=== PATIENT | male | born 1950 | race Caucasian/White ===

== ENCOUNTER 2018-02-08 13:48 | Emergency (ER) | payer OTHER ==
[2018-02-08 13:55] VITALS: TEMP 98.6
--- NOTE | 2018-02-08 13:57 | EDPHY ---
H & P Stated Complaint: L should injury--fell off horse, +helmet, no other inj Time Seen by Provider: 02/08/18 13:57 HPI/ROS: HPI: This is a 67-year-old male who presents with Chief Complaint: L should injury--fell off horse, +helmet, no other inj Location: Left shoulder Quality: Injury Duration: Prior to arrival Signs and Symptoms: No LOC, no nausea, no vomiting, no photophobia, no noise sensitivity, no neck stiffness, no neck pain, no weakness, no radiation, no aura , no paresthesias, no headache Timing: Acute Severity: 06/26 Context: Patient is right-hand dominant, was riding his horse while wearing a helmet, when the horse was stepped in a prairie dog hole causing him to lose his balance. Patient fell off of the horse landing directly on the superior and anterior portion of his left shoulder. He felt immediate, constant, severe , nonradiating pain. Pain was worsened with any range of motion. He denies any elbow/wrist/finger pain. He remembers the entire incident and denies any loss of consciousness. He has no nausea/vomiting/amnesia/abdominal pain. No history of shoulder dislocations in the past. Does not take any blood thinners. Ambulatory from the waiting room to the ER room without assistance. Modifying Factors: None Comment: ROS: see HPI Constitutional: No fever, no chills, no weight loss Eyes: No blurred vision Respiratory: No shortness of breath, no cough Cardiovascular: No chest pain, no palpitations Gastrointestinal: No nausea, no vomiting, no diarrhea, no hematemesis, no blood in stool Genitourinary: No dysuria, no blood in urine Extremities: No myalgias, no edema Neurologic: No weakness, no numbness Skin: No rashes, no petechiae Hematologic: No bruising, no bleeding MEDICAL/SURGICAL/SOCIAL HISTORY: Medical history: Hypothyroidism. Surgical history: Denies Social history: Employed. CONSTITUTIONAL: Adult male who appears younger than stated age, awake and alert , no obvious distress HEENT: Atraumatic and normocephalic, PERRL, EOMI. no globe entrapment, no raccoon eyes. no Shaikh signs.Tympanic membranes clear. No tympanic membrane rupture. Nares patent; no septal hematoma. Oropharynx clear, no exudate and moist pink mucosa. No malocclusion. no dental trauma. Airway patent. No lymphadenopathy. NECK: supple, no midline tenderness, flexion 45 degrees, extension 45 degrees, right and left lateral flexion 45 degrees. No meningismus. Cardiovascular: Normal S1/S2, tachycardia, regular rhythm, without murmur rub or gallop. PULMONARY/CHEST: Symmetrical and nontender. no crepitus. Clear to auscultation bilaterally. Good air movement. No accessory muscle usage. ABDOMEN: Soft, nondistended, nontender, no ecchymosis, no rebound, no guarding , no peritoneal signs, no masses or organomegaly. No CVAT. PELVIC: no pain with rocking; bilateral hips flexion 125 degrees, extension 30 degrees, with no pain internal rotation and no pain external rotation. BACK: No midline tenderness, no paraspinous spasm, deep tendon reflexes 2/2, no pain with straight leg raise EXTREMITIES: 2/2 radial pulses, left SHOULDER: Held in abduction next to his chest. No clavicular deformity appreciated. No tenting of skin. no deformities , no clubbing, no cyanosis or edema. Left WRIST: Extension to 70, flexion to 80, radial deviation to 20 degree, ulnar deviation to 30, no scaphoid tenderness, no tenderness over ulnar styloid, no tenderness over radial styloid. Left ELBOW: Full extension to 180, flexion to 150, no tenderness over medial epicondyle, no tenderness over lateral epicondyle, no effusion. NEUROLOGICAL: no focal neuro deficits. GCS 15. SKIN: Warm and dry, no erythema. no rash. Good capillary refill. Source: Patient Exam Limitations: No limitations - Medical/Surgical History Hx Asthma: No Hx Chronic Respiratory Disease: No Hx Diabetes: No Hx Cardiac Disease: No Hx Renal Disease: No Hx Cirrhosis: No Hx Alcoholism: No Hx HIV/AIDS: No Hx Splenectomy or Spleen Trauma: No Other PMH: denies - Social History Smoking Status: Never smoked Constitutional: Initial Vital Signs Temperature (C) 37.0 C 02/08/18 13:53 Heart Rate 101 H 02/08/18 13:53 Respiratory Rate 18 02/08/18 13:53 Blood Pressure 155/89 H 02/08/18 13:53 O2 Sat (%) 99 02/08/18 13:53 O2 Delivery Mode Room Air O2 (L/minute) 96 Allergies/Adverse Reactions: No Known Allergies Allergy (Unverified 02/08/18 13:52) Home Medications: Medication Instructions Recorded Diazepam [Valium 2 MG (*)] 2 mg PO Q8 PRN #10 tab 02/08/18 Diclofenac Sodium 02/08/18 Levothyroxine 02/08/18 oxyCODONE/APAP 5/325 [Percocet 1 - 2 tab PO Q4H PRN #20 tab 02/08/18 5/325 (*)] Medical Decision Making - Diagnostics Imaging Results: Imaging Impressions Shoulder X-Ray 02/08/18 13:56 Impression: 1. Acute comminuted left humeral head and surgical neck fracture. 2. No AC separation or dislocation. Procedures: Procedure: Splint placement. A left coaptation splint and sling was applied by the Emergency Room master automotive technician. After application of the splint I returned and re-examined the patient. The splint was adequately immobilizing the joint and distal to the splint the patient's circulation and sensation was intact. ED Course/Re-evaluation: Given IV Dilaudid 1 mg and left shoulder x-ray ordered No signs of neurovascular compromise/tenting of skin/compartment syndrome/ extremities and joints examined above and below area of concern and are neurovascularly intact. X-ray my read shows proximal humerus fracture; comminuted; neck 1450: ED decision to consult Orthopedic. Spoke with Dr. Robbie Love who agrees with coaptation splint, pain control, call office on Friday for follow- up appointment next week. 1500: Reassessed patient and showed x-rays at bedside. Still complaining of 7/ 10 pain with muscle spasms now. IV Dilaudid 1 mg and IV Valium 5 mg ordered. 1615: Reassessed patient who reports adequate control pain. Mother at bedside. All questions answered. This patient was seen under the supervision of my secondary supervising physician. I evaluated care for this patient independently. Discussed this patient with Dr. Bryant who did not see the patient. Differential Diagnosis: Shoulder injury differential includes but is not limited to clavicle fracture, humerus fracture, dislocation, brachial plexus injury, labral tear, rotator cuff injury, AC sprain. - Data Points Medications Given: Discontinued Medications Diazepam (Valium) 5 mg IVP EDNOW ONE Stop: 02/08/18 15:11 Last Admin: 02/08/18 15:18 Dose: 5 mg Hydromorphone HCl (Dilaudid) 1 mg IVP EDNOW ONE Stop: 02/08/18 14:08 Last Admin: 02/08/18 14:25 Dose: 1 mg Hydromorphone HCl (Dilaudid) 1 mg IVP EDNOW ONE Stop: 02/08/18 15:11 Last Admin: 02/08/18 15:18 Dose: 1 mg Departure - Departure Disposition: Home, Routine, Self-Care Clinical Impression: Fracture of surgical neck of left humerus Qualifiers: Encounter type: initial encounter Fracture type: closed Fracture morphology: 2- part Fracture alignment: nondisplaced Qualified Code(s): S42.225A - 2-part nondisplaced fracture of surgical neck of left humerus, initial encounter for closed fracture Condition: Good Instructions: Proximal Humerus Fracture (ED), Closed Reduction Internal Fixation of an Upper Extremity Fracture (DC) Additional Instructions: Keep the splint dry and in place until seen by Orthopedics for follow-up. Take Tylenol 650 mg every 4 hours and/or Ibuprofen 600 mg every 8 hours with food as needed for pain. Use Percocet every 6 hours as needed for severe/break through pain. Do not use Tylenol and Percocet concomitantly. Apply ice for 30 minutes at a time; 2-3 times per day for the next 1-[address] Love's office tomorrow morning for an appointment sometime next week. He will evaluate and recommend with you if conservative management versus surgery is indicated. Follow-Up: Please follow-up as noted above. Follow up sooner if your condition worsens or if you develop any new problems Call as soon as possible for an appointment. Be clear when you call for an appointment that this is an Emergency Department follow-up. Contact the Emergency Department if you are having trouble arranging follow up care. Our referrals are not based on your insurance network. When time allows, contact your insurance carrier to verify the referral physician is in your plan. If not, get a referral for an in-ip network architect. Please ask us if you have any questions. Return to the ER immediately if you experience new or worsening pain, discoloration, numbness, tingling, or any other symptoms that concern you. Referrals: Randall Orta MD [Primary Care Provider] - As per Instructions Robbie Love MD [Medical Doctor] - As per Instructions Prescriptions: Diazepam [Valium 2 MG (*)] 2 mg PO Q8 PRN #10 tab PRN Reason: Spasms oxyCODONE/APAP 5/325 [Percocet 5/325 (*)] 1 - 2 tab PO Q4H PRN #20 tab PRN Reason: Pain, Severe
[2018-02-08] MEDS ORDERED: HYDROmorphONE/DILAUDID 2 MG/ML INJ IVP ONE ×2 (14:07→15:10)
[2018-02-08] MEDS ORDERED: DIAZEPAM 5 MG/ML 1 ML SYR IVP ONE (15:10)
[2018-02-08 15:25] VITALS: RESP 16
[2018-02-08 16:27] VITALS: BP 148/99; PULSE 82; O2SAT 96
== END 2018-02-08 16:40 | disposition home or self-care (01) ==
DX: S42.225A 2-part nondisplaced fracture of surgical neck of left humerus, initial encounter for closed fracture (principal); V80.010A Animal-rider injured by fall from or being thrown from horse in noncollision accident, initial encounter; Y99.8 Other external cause status; Y93.52 Activity, horseback riding
CPT/HCPCS: 96374; A4565; J1170; J3360

== ENCOUNTER 2018-02-23 12:58 | Observation (INO) | payer OTHER ==
--- NOTE | 2018-02-22 08:19 | GHP ---
[f rep st] PREOP HISTORY AND PHYSICAL DATE OF ADMISSION: 02/23/2018 ADMISSION DIAGNOSIS: Comminuted proximal humerus fracture, left. PLANNED PROCEDURE: Open reduction, internal fixation, left proximal humerus fracture. HPI: The patient is a 67-year-old male, who fell off his horse on 02/08/2018, presented to the [facility] Emergency Department. X-rays were obtained which showed a comminuted proximal humerus fracture, 3-part, displaced in a posterior splint and sling, and presented to the office for followup. Decision was made to proceed with an open reduction, internal fixation of his shoulder. PRIOR MEDICAL HISTORY: Thyroid problems. SURGICAL HISTORY: None. SOCIAL HISTORY: He is . Does not smoke. Occasional alcohol use. 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 REVIEW OF SYSTEMS: No shortness of breath. No chest pain. Otherwise, review of systems is unremark able. PHYSICAL EXAM: VITAL SIGNS: 6 feet tall, weighs 175 pounds. Blood pressure is 140/80. Heart rate is 100, respiratory rate is 14 on room air. GENERAL: Alert and oriented x3. HEENT: Normocephalic, atraumatic. Extraocular muscles are intact. NECK: Supple. There is no lymphadenopathy. No JVD. CHEST: Clear to auscultation. CARDIOVASCULAR: Regular rate and rhythm. ABDOMEN: Soft, nontender , nondistended. EXTREMITIES: Focusing on the left upper extremity, he has quite a bit of ecchymosis in his chest wall and proximal humerus. There is no obvious deformity. He has 2+ radial pulses. M oving his fingers well. Sensation in the radial and median and ulnar nerve distribution all intact. X-rays are reviewed. They do show a 3-part proximal humerus fracture. The greater tuberosity fragme nt is displaced superiorly and posteriorly. ASSESSMENT: Three-part proximal humerus fracture, left. PLAN: The glenohumeral joint is in good shape on the x-ray, so I recommend proceeding with an open r eduction, internal fixation of the fracture, repositioning the greater tuberosity piece. We talked a bout risks and benefits. He may need to have hardware removed in the future. There is a possibility for humeral head avascular necrosis following a complex injury like this, necessitating further surg ical intervention. He understands these risks. Plan on surgery Friday at the hospital. /[id number]/MODL
[2018-02-23] MEDS ORDERED: ceFAZolin 2 GM/SWFI 2 GM/20 ML SYR IVP ONE (13:13)
[2018-02-23] MEDS ORDERED: LIDOCAINE 1% 2 ML INJ ID PRN (13:14)
[2018-02-23] MEDS ORDERED: LR 1,000 ML IV ONE (13:14)
[2018-02-23] MEDS ORDERED: POLYMYXIN B SULFATE 500,000 UNIT/10 ML SYR IRR ONE ×2 (14:05→15:53)
[2018-02-23] MEDS ORDERED: BUPIVACAINE/EPI 0.5% 30 ML SDV ONE (14:05)
[2018-02-23] MEDS ORDERED: BACITRACIN 50,000 UNITS/10 ML SYR IRR ONE ×2 (14:06→15:53)
--- NOTE | 2018-02-23 15:12 | PDANEPAE ---
ANE History of Present Illness 67 yo M s/p proximal humerus fx, here for ORIF ANE Past Medical History - Cardiovascular History Hx Hypertension: No Hx Arrhythmias: No Hx Chest Pain: No Hx Coronary Artery / Peripheral Vascular Disease: No Hx CHF / Valvular Disease: No Hx Palpitations: No - Pulmonary History Hx COPD: No Hx Asthma/Reactive Airway Disease: No Hx Recent Upper Respiratory Infection: No Hx Oxygen in Use at Home: No Hx Sleep Apnea: No Sleep Apnea Screening Result - Last Documented: Negative - Neurologic History Hx Cerebrovascular Accident: No Hx Seizures: No Hx Dementia: No - Endocrine History Hx Diabetes: Yes Endocrine History Comment: HYPOTHYROID - Renal History Hx Renal Disorders: Yes Renal History Comment: BPH - Liver History Hx Hepatic Disorders: No - Neurological & Psychiatric Hx Hx Neurological and Psychiatric Disorders: No - Cancer History Hx Cancer: No - Congenital Disorder History Hx Congenital Disorders: No - GI History Hx Gastrointestinal Disorders: No - Other Health History Other Health History: FELL OFF HORSE ONTO LT SHLDR 02/08/2018 SUSTATINING FX TO LT HUMERUS. CDD SCAPULA AREA - Chronic Pain History Chronic Pain: No - Surgical History Prior Surgeries: REMVL CYST FROM LEFT CALF. CERVICAL STEROID INJECTIONS. RT TRIGGER FINGER RELEASE. RT GREAT TOE ANE Review of Systems Review of Systems: - Exercise capacity METS (RN): 4 METS ANE Patient History - Allergies Allergies/Adverse Reactions: No Known Allergies Allergy (Unverified 02/08/18 13:52) - Home Medications Home Medications: Diclofenac Sodium PO PRN 02/08/18 [Last Taken 02/23/18] Levothyroxine DAILY06 02/08/18 [Last Taken 02/23/18] Avodart 0.5 MG (*) DAILY06 02/20/18 [Last Taken 02/23/18] Citalopram DAILY06 02/20/18 [Last Taken 02/23/18] Simvastatin 20 mg 02/23/18 [Last Taken 02/22/18] Tizanidine HCl 02/23/18 [Last Taken 02/20/18] traMADol 02/23/18 [Last Taken 02/22/18] - NPO status NPO Status: no food or drink >8 hours NPO Since - Liquids (Date): 02/23/18 NPO Since - Liquids (Time): 10:30 NPO Since - Solids (Date): 04/08/18 NPO Since - Solids (Time): 20:30 - Anes Hx Anes Hx: no prior problems - Smoking Hx Smoking Status: Never smoked - Alcohol Use Alcohol Use: Occasionally - Family Anes Hx Family Anes Hx: none ANE Labs/Vital Signs - Vital Signs Blood Pressure: 141/94 Heart Rate: 94 Respiratory Rate: 14 O2 Sat (%): 99 Height: 182.88 cm Weight: 79.379 kg ANE Physical Exam - Airway Neck exam: FROM Mallampati Score: Class 2 Mouth exam: normal dental/mouth exam - Pulmonary Pulmonary: no respiratory distress, clear to auscultation - Cardiovascular Cardiovascular: regular rate and rhythym, no murmur, rub, or gallop - ASA Status ASA Status: II ANE Anesthesia Plan Anesthesia Plan: GA w LMA Regional Anesthesia: single shot NB, interscalene BP NB
[2018-02-23] MEDS ORDERED: MIDAZOLAM 2 MG/2 ML VIAL IVP ONE (15:14)
[2018-02-23] MEDS ORDERED: LIDOCAINE 2% 100 MG/5 ML SYR ONE (15:41)
[2018-02-23] MEDS ORDERED: PROPOFOL 200 MG/20 ML VIAL ONE (15:41)
[2018-02-23] MEDS ORDERED: fentaNYL 100 MCG/2 ML INJ ONE (15:41)
[2018-02-23] MEDS ORDERED: BUPIVACAINE 0.5% 30 ML SDV ONE ×2 (15:51→15:53)
[2018-02-23] MEDS ORDERED: clonIDINE 1 MG/10 ML VIAL EP ONE (15:51)
--- NOTE | 2018-02-23 15:52 | PDHPUP ---
History & Physical Update H&P update statement: This history and physical update is based on an assessment of the patient which was completed after admission or registration (within 24 hours), but prior to the surgery/procedure. H&P update: H&P reviewed & patient examined, no change in patient's condition since H&P completed
[2018-02-23] MEDS ORDERED: PHENYLEPHRINE HCL 100 MCG/ML SYR ONE ×2 (17:02)
[2018-02-23] MEDS ORDERED: DEXAMETHASONE 4 MG/ML VIAL ONE (17:24)
[2018-02-23] MEDS ORDERED: ONDANSETRON 4 MG/2 ML VIAL ONE (17:24)
[2018-02-23] MEDS ORDERED: PHENYLEPHRINE 10 MG/ML SDV ONE (17:42)
--- NOTE | 2018-02-23 18:18 | POSTOPPROG ---
Post Op Note Date of Operation: 02/23/18 Surgeon: Robbie Love [place] [employer] Professor: CORRIE robles Anesthesia: GET(General Endotracheal) Pre-op Diagnosis: proximal humerus fx left Post-op Diagnosis: same Procedure: ORIF prox humerus, biceps tenodesis Findings: 4 part prox humeral fx Inf/Abcess present in the surg proc area at time of surgery?: No EBL: 50-100 Complications: none
[2018-02-23] MEDS ORDERED: ACETAMINOPHEN 500 MG TAB PO PRN (18:45)
[2018-02-23] MEDS ORDERED: PROMETHAZINE HCL 25 MG/ML INJ IVP PRN (18:45)
[2018-02-23] MEDS ORDERED: fentaNYL 100 MCG/2 ML INJ IVP PRN (18:45)
[2018-02-23] MEDS ORDERED: HYDROCODONE/APAP 5/325 TAB PO PRN (18:45)
[2018-02-23] MEDS ORDERED: NALOXONE HCL 0.4 MG/ML INJ IVP PRN (18:45)
[2018-02-23] MEDS ORDERED: ONDANSETRON 4 MG/2 ML VIAL IVP PRN ×2 (18:45→21:45)
[2018-02-23] MEDS ORDERED: oxyCODONE IR 5 MG TAB PO PRN (18:45)
--- NOTE | 2018-02-23 18:48 | POSTANESTH ---
Post Anesthetic Evaluation Cardiovascular Status: Normal, Stable, Similar to Pre-Op Cond Respiratory Status: Normal, Stable, Similar to Pre-op Cond. Level of Consciousness/Mental Status: Can Participate in Eval, Alert and Oriented Pain Control: Adequate, Prn Tx Ordered Nausea/Vomiting Control: Adequate, Prn Tx Ordered Complications Possibly Related to Anesthesia: None Noted
--- NOTE | 2018-02-23 19:58 | CPEKG ---
Heart Rate: 153 RR Interval: 392 QRSD Interval: 138 QT Interval: 352 QTC Interval: 562 P [place]: 0 QRS [place]: 115 T Wave [place]: -5 EKG Severity - ABNORMAL ECG - EKG Impression: SINUS TACHYCARDIA EKG Impression: RIGHT BUNDLE BRANCH BLOCK Electronically Signed By: Jami Amaya 24-Feb-2018 07:00:55
[2018-02-23] MEDS ORDERED: ADENOSINE 6 MG/2 ML VIAL IVP ONE (20:00)
[2018-02-23] MEDS ORDERED: METOPROLOL TARTRATE 5 MG/5 ML INJ ONE ×2 (20:11→20:21)
[2018-02-23] MEDS ORDERED: METOPROLOL TARTRATE 5 MG/5 ML INJ IVP ONE ×2 (20:45→21:20)
--- NOTE | 2018-02-23 20:51 | POSTANESTH ---
Post Anesthetic Evaluation Cardiovascular Status: Other, See Comment Respiratory Status: Normal, Stable, Similar to Pre-op Cond. Level of Consciousness/Mental Status: Can Participate in Eval Pain Control: Adequate, Prn Tx Ordered Nausea/Vomiting Control: Adequate, Prn Tx Ordered Complications Possibly Related to Anesthesia: None Noted Notes: Called to PACU to reevaluate pt for stable tachyarythmia. 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 Attempted vagal maneuvers which were ineffective. Adenosine 6 mg converted him to sinus tach 120's. Metoprolol 5 mg IV brought his rate down to the 80's NSR. Pt stable and comfortable throughout. Plan to admit to tele for observation overnight, consider cards consult in the am. Discussed with hospitalist and ortho.
[2018-02-23] MEDS ORDERED: traMADol 50 MG TAB PO PRN (21:45)
[2018-02-23] MEDS ORDERED: ACETAMINOPHEN 325 MG TAB PO PRN (21:45)
--- NOTE | 2018-02-23 22:34 | GHP ---
[f rep st] HISTORY AND PHYSICAL DATE OF ADMISSION: 02/23/2018 CHIEF COMPLAINT: Supraventricular tachycardia. HISTORY: The patient is a 67-year-old male who fell off his horse on February 08 and sustained a left proximal humerus fracture. Underwent an ORIF of the shoulder today by Dr. Love. When he was re covering in PACU, he was noted to be in tachycardia with heart rates between 150-180 and a STAT team was called. He was diagnosed with SVT. Vagal maneuvers were attempted with no results. He was subs equently given 6 mg of IV adenosine and converted back to a sinus tachycardia. He was then given 5 m g of IV metoprolol and he is now in normal sinus rhythm with a heart rate in the 80s. I am now being asked to admit him to observation and telemetry overnight. The patient states he had absolutely no symptoms during the event. Staff was getting excited regardi ng his heart rate on the monitor, but he felt mostly normal without any chest pain or shortness of br eath. He never gets any palpitations. This shoulder fracture has been very stressful for him with p oorly-controlled pain over the last 3 weeks. He says he maybe felt a little wired in the postoperati ve period, but otherwise asymptomatic. He has no known cardiac problems and otherwise has no chronic cardiac symptoms. PAST MEDICAL HISTORY: 1. Hypothyroidism. 2. BPH. 3. Hyperlipidemia. 4. Depression. PAST SURGICAL HISTORY: Cervical steroid injection. MEDICATIONS: Please see computer record for a detailed list. ALLERGIES: No known drug allergies. SOCIAL HISTORY: No smoking. Occasional alcohol. He lives with his . 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 REVIEW OF SYSTEMS: Complete review of systems obtained. Review of systems negative regarding consti tutional, HEENT, GI, pulmonary, cardiovascular, , hematology, skin, musculoskeletal, endocrine, psy ch, except for positives and negatives as in HPI. FAMILY HISTORY: His sister also suffers from tachycardia. Father at age 99 with no cardiac pro blems. His mother did require a valve replacement surgery. PHYSICAL EXAMINATION: GENERAL: Well-developed, well-nourished male, in no acute distress. VITAL SI GNS: Temperature 36.7, pulse 92, blood pressure 108/79, saturating 97%. HEENT: Eye examination: N ormal conjunctivae. Pupils are equal and reactive to light. ENT: Normal ears, nose. Hearing intac t. Normal teeth. Oropharynx moist. NECK: Trachea midline. No thyromegaly. CHEST: Normal effort . LUNGS: Clear to auscultation bilaterally. CARDIOVASCULAR: Regular rate and rhythm. No murmur. No lower extremity edema. ABDOMEN: Soft, nontender. No hepatosplenomegaly. SKIN: Warm, dry, int act. No rash. MUSCULOSKELETAL: No cyanosis or clubbing. Strength 5/5 upper and lower extremities. NEUROLOGIC: Cranial nerves intact. Normal sensation to light touch. PSYCHIATRIC: Awake, alert, oriented x3. Normal affect. Normal judgment. Normal memory. DATA: Glucose is 103. EKG shows SVT with a heart rate 153. This case was discussed with Dr. Yandel Chapin, who was the anesthesiology attending to the STAT team ev ent. He described events to me as they were placed under Past Medical History. ASSESSMENT AND PLAN: 1. Supraventricular tachycardia, status post IV adenosine, now back to a sinus rhythm. Will continu e a low-dose beta marques. Will watch him on telemetry overnight and check an echocardiogram and EKG in the morning. The patient and his would like a Cardiology consultation, but would we would l keisha to decide tomorrow with the [facility] hospitalist, whether not that should be done as an inpatient , or if he would be comfortable going home and pursuing that as an outpatient. 2. Left proximal humerus fracture status post open reduction, internal fixation. This was intended to be an outpatient procedure. So, therefore, he can discharge home when he is stable from a cardiac standpoint. 3. Depression. This has been very severe in the last couple of weeks due to his severe pain from th e shoulder. Therefore, the is also concerned regarding initiation of a beta-marques. Will disc uss tomorrow whether or not that needs to be continued. Hopefully, depression will improve now that the surgery is completed. 4. Hypothyroidism. Will check TSH in the morning. CODE STATUS: Full. ADMISSION STATUS: Will admit to observation. Reevaluate tomorrow during ongoing hospitalization. DVT PROPHYLAXIS: He is low risk and just had surgery. Will hold off on pharmacologic prophylaxis at this time. /[id number]/MODL
[2018-02-24] MEDS: oxyCODONE IR 5 MG TAB PO PRN ×2 (03:33→10:38)
[2018-02-24 04:09] LABS: PLATELET COUNT 352 10^3/uL (150-400)
--- NOTE | 2018-02-24 06:35 | GOP ---
[f rep st] OPERATIVE REPORT DATE OF OPERATION: SURGEON: Robbie Love MD ANESTHESIA: Dr. Yandel Chapin, general with interscalene block. PREOPERATIVE DIAGNOSIS: Displaced proximal humerus fracture, left. POSTOPERATIVE DIAGNOSIS: Displaced proximal humerus fracture, left. PROCEDURE PERFORMED: 1. Open reduction, internal fixation, left humerus. 2. Biceps tenodesis. FINDINGS: INDICATIONS: The patient is a 67-year-old male, who fell off a horse approximately 10 days ago and s ustained a proximal humerus fracture. He was evaluated in our office and decision made to proceed wi an open reduction, internal fixation of his fracture. DESCRIPTION OF PROCEDURE: After appropriate informed consent was obtained, patient taken to the oper ating room, placed supine on the operating table. Time-out was performed. Patient was identified an d correct site was identified. An interscalene block had been placed in the preoperative area. Dr. Chapin administered general endotracheal tube anesthesia. IMPLANTS USED: Synthes proximal humeral locking plate. COMPLICATIONS: None. DRAINS: None. POSITION: The patient was then positioned in the beach chair position with the left upper extremity prepped and draped in usual sterile fashion. I made a standard deltopectoral incision, retracted the cephalic vein toward the medial side of the wound and opened up the deltopectoral interval. I incis ed the clavipectoral fascia. I incised the subscapularis and tagged it for later repair to examine t he joint. There were no loose bodies within the joint and the articular cartilage was well maintaine d. I then turned my attention to the proximal humeral fracture. It was a 4 part fracture. Part of the greater tuberosity had been displaced superiorly with the rotator cuff attached to that fragment and there was a fragment displaced posteriorly superiorly. I was able to reduce the greater tuberosi ty fracture back to its original position with the cuff intact. Using heavy #2 FiberWire I was able to temporarily suture it back in place as was able to do with the posterior fragment and then placed the proximal humerus superior locking plate in place, confirmed its position with a fluoroscopic imag e and I was able to sew those fragments back onto the plate later once I had attached the plate to e bone. I started with a shaft screw with good bony purchase. Reduced the fracture nicely. Brought the head back out of varus alignment. I then placed a series of locking screws both proximally and distally in the plate confirming their position with AP and lateral fluoroscopic images. The wound w as irrigated. The biceps tendon had been badly injured. I tenodesed it and removed the remaining fr agments inside the joint. Closed the subscapularis with #2 FiberWire. Closed the clavipectoral fasc ia with 0 Vicryl, superficial layers closed with 2-0 Vicryl, skin was closed with a subcuticular [place] cryl stitch. I instilled 20 mL of 0.5% Marcaine around the incision. Sterile dressing and a sling w ere applied. The patient was awakened from anesthesia, taken to the recovery room in satisfactory co ndition. There were no immediate intraoperative complications. Anjel Arias's assistance was requ ired throughout the entire case. /[id number]/MODL
[2018-02-24] MEDS ORDERED: METOPROLOL SUCCINATE XR 25 MG TAB PO SCH (09:00)
--- NOTE | 2018-02-24 09:12 | CPEKG ---
Heart Rate: 86 RR Interval: 698 P-R Interval: 172 QRSD Interval: 144 QT Interval: 396 QTC Interval: 474 P [place]: 72 QRS [place]: 103 T Wave Preston: 35 EKG Severity - ABNORMAL ECG - EKG Impression: SINUS RHYTHM EKG Impression: RBBB AND LPFB EKG Impression: ST ELEVATION, PROBABLE LATERAL INJURY Electronically Signed By: Jami Amaya 24-Feb-2018 11:06:16
[2018-02-24] MEDS ORDERED: CYCLOBENZAPRINE 10 MG TAB PO PRN (09:25)
[2018-02-24] MEDS ORDERED: traMADol 50 MG TAB PO PRN (09:25)
[2018-02-24] MEDS ORDERED: OXYCODONE/APAP 5/325 TAB PO PRN (09:25)
[2018-02-24] MEDS ORDERED: DICLOFENAC SODIUM 75 MG TAB PO PRN (09:25)
[2018-02-24] MEDS ORDERED: LEVOTHYROXINE 137 MCG TAB PO SCH (09:30)
[2018-02-24] MEDS ORDERED: NON-FORMULARY NEW DRUG (Escitalopram Oxalate [Lexapro] 20 MG) PO SCH (09:30)
--- NOTE | 2018-02-24 09:44 | CPEKG ---
Heart Rate: 112 RR Interval: 536 P-R Interval: 168 QRSD Interval: 140 QT Interval: 364 QTC Interval: 497 P [place]: 63 QRS [place]: 146 T Wave [place]: -2 EKG Severity - ABNORMAL ECG - EKG Impression: SINUS TACHYCARDIA EKG Impression: RBBB AND LPFB Electronically Signed By: Jami Amaya 24-Feb-2018 11:06:07
[2018-02-24] MEDS ORDERED: DUTASTERIDE 0.5 MG CAP PO SCH (09:45)
[2018-02-24] MEDS ORDERED: ESCITALOPRAM OXALATE 10 MG TAB PO SCH (09:45)
--- NOTE | 2018-02-24 10:23 | ECHO ---
[email or web address] [address] Main: [phone] Fax: Transthoracic Echocardiogram Name: NANCY SCHUSTER MR#: [id number] Study Date: 02/24/2018 Study Time: 07:43 AM Date of : 1950 Age: 67 year(s) Height: 182.9 cm (72 in.) Weight: 79.38 kg (175 lb.) BSA: 2.01 m2 Gender: Male Examination: Echo Indication: SVT post op left shoulder Image Quality: Contrast: Requested by: Kyra Sagastume BP: 109 mmHg/72 mmHg Heart Rate: Rhythm: Indication: SVT post op left shoulder Procedure Staff Funds Transfer Clerk: Ciera Infante RDCS Reading Physician: Milan Gandara MD Requesting Provider: Conclusions: No pericardial effusion. Limited study. Preserved LV systolic function. Doppler suggests no significant valvular abnormalities. Measurements: Chambers Valvular Assessment AV/MV Valvular Assessment TV/PV Normal Normal Normal Name Value Range Name Value Range Name Value Range Ao Annette (MM): 3.9 cm (2.2 cm-3.7 AV meanP mmHg ( - ) cm) MV E Vmax: 0.56 m/s ( - ) EF Range: 70-75 % MV A Vmax: 0.78 m/s ( - ) MV E/A: 0.72 ( - ) Continued Measurements: Valvular Assessment AV/MV Name Value MV E' Septal: 0.07 m/s MV E/E' Septal: 8.30 Findings: Left Ventricle: Normal size left ventricle. Global hypercontractility of the left ventricle. The ejection fraction is estimated to be 70-75 %. Right Ventricle: Normal size right ventricle. Left Atrium: The left atrium is normal in size. Mitral Valve: Patient: NANCY SCHUSTER Study Date: 02/24/2018 Page 1 of 2 07:43 AM The mitral valve is normal in appearance. Aortic Valve: Aortic valve opens well.. Tricuspid Valve: The tricuspid valve appears normal. Pulmonic Valve: Pulmonary valve not well visualized. Pericardium: No pericardial effusion. Exam Comments: Technically difficult study - post op left shoulder. (No Signature Object) Patient: NANCY SCHUSTER Study Date: 02/24/2018 Page 2 of 2 07:43 AM [id number]
[2018-02-24 12:01] VITALS: BP 107/70
--- NOTE | 2018-02-24 12:41 | GDS ---
[f rep st] DISCHARGE SUMMARY DIAGNOSES: 1. Supraventricular tachycardia, cardioverted with adenosine. 2. Humerus fracture status post surgery. PROCEDURE PERFORMED: Echocardiogram, normal, surgeries. Please see Dr. Love's note. HOSPITAL COURSE: The patient is a 67-year-old who fell off his horse sustaining a humeral fracture. He underwent surgery yesterday and postop in the PACU developed SVT with a heart rate of 160 to 180, which was asymptomatic. They tried various vagal maneuvers, which did not resolve, so he ended up g etting adenosine and converted back to sinus rhythm. He was monitored overnight, had no further arrh ythmias and is ready for discharge today. He did meet with Cardiology for a formal consult, who rica mmended that he follow up with him in 6 weeks. He also recommend he start an aspirin due to his risk factors. They did not recommend daily metoprolol use at this time since that was a 1 time rhythm an d he can certainly follow up and discuss that depending on if he has any further episodes. CONDITION ON DISCHARGE: Good. He has been in sinus rhythm throughout his stay. His vital signs are stable. DISCHARGE MEDICATIONS: Please see discharge medication form. FOLLOWUP: Will be with [facility] in 6 weeks. Follow up with Dr. Love as scheduled. /[id number]/MODL
--- NOTE | 2018-02-24 15:44 | ASDISCHSUM ---
Discharge Information Plan Status:Home with No Needs Medically Cleared to Leave:02/24/2018 Discharge Date:02/24/2018 01:08 PM CM D/C Disposition:Home, Routine, Self-Care ADT D/C Disposition:Home, Routine, Self-Care Projected Discharge Date:02/24/2018 01:08 PM Transportation at D/C: Discharge Delay Reason: Follow-Up Date:02/24/2018 01:08 PM Discharge Slot: Final Diagnosis: Placement Information Patient Contact Information Contact Name:MIKKI Relationship: Address:[address] City:[place] [facility] Phone: [facility]/Zip Code:[place] [address] Email: Financial Information Financial Class:HMO and PPO Plans Primary Plan Desc:[employer] PPO [employer] Primary Plan Number:[id number] Secondary Plan Desc: Secondary Plan Number: Assessment Information LACE LACE Length of stay for Answers: Less than 1 day current admission Acuity / Level of Answers: No Care: Did the patient have an inpatient admission? Comorbidities - select Answers: Other Notes: BPH, hypothroidism, hyp erl all that apply ipidemia # of Emergency department Answers: 1-2 visits in the last 6 months Social determinants Answers: Mental health diagnosis (anxiety, depression, pers onality disorders, etc.) Score: 5 Date Signed: 02/24/2018 03:43 PM Electronically Signed By:Devora Alexander RN Case Management Discharge Plan Note Case Management Discharge Discharge Order Complete? Answers: Yes Patient to Obtain Answers: Independently Medications Transportation Arranged Answers: Family/Friends Discharge Comments Notes: 02/24/2018 Case Management Note Discussed pt during multi disciplinary rounds this morning. Pt admitted for closed fracture of upper end of left humerus after falling from a horse. There are no case management d/c needs identified d/t pt age, marital status and activity levels prior to admission. Pt ambulates without difficulty. able to drive. Pt d/c independent with follow up as directed. Date Signed: 02/24/2018 03:42 PM Electronically Signed By:Devora Alexander RN Intervention Information
--- NOTE | 2018-02-24 16:07 | GCON ---
[f rep st] CONSULTATION CARDIAC CONSULTATION DATE OF CONSULTATION: 02/24/2018 CHIEF COMPLAINT: Supraventricular tachycardia. HISTORY OF PRESENT ILLNESS: Santiago is a 67-year-old male with a history of hyperlipidemia, who went into SVT post surgery requiring adenosine. On February 08, he fell off his horse and fractured his le ft proximal humerus. It was repaired by Dr. Love on February 23, 2018. His surgery was uncomplicate d, but in the PACU he developed SVT with rates of 150-180 beats per minute. He recalls being very hu ngry and maybe slightly agitated, but denied any other symptoms, such as palpitations, chest pain, sh ortness of breath, or dizziness. Vagal maneuvers were attempted but unsuccessful. Ultimately, he wa s given adenosine 6 mg and converted to normal sinus rhythm. He has remained in normal sinus rhythm since that time. He currently denies any chest discomfort, shortness of breath, or palpitations. He denies any history of palpitations. His troponins have been negative x2. His EKG is abnormal showing normal sinus rhythm with right bund le branch block and a left posterior fascicular block. He does not have any prior EKGs to compare. An echocardiogram during this hospitalization revealed preserved LV function without any significant valvular or wall motion abnormalities. PAST MEDICAL HISTORY: Hypothyroidism, BPH, hyperlipidemia, and depression. FAMILY HISTORY: His mother required a mitral valve replacement at the age of 70. She had a myocardi al infarction at the age of 81, which was fatal. His maternal grandfather had angina in his 60s. He had an uncle on his maternal side who had an TX in his 60s. SOCIAL HISTORY: He denies any tobacco use. He is currently accompanied by his . He is very act quinn and denies any exertional chest discomfort or shortness of breath. HOME MEDICATIONS: Please see home med list. ALLERGIES: No known drug allergies. REVIEW OF SYSTEMS: Negative except for what is stated in the H and P. PHYSICAL EXAMINATION: VITALS: Blood pressure 107/70, heart rate 90, oxygen saturation 95% on room a ir, afebrile. NECK: No carotid bruits or JVD present. LUNGS: Clear to auscultation. No wheezes, rhonchi, or heat and vent aircraft mechanic ckles auscultated. CARDIAC: Regular rate and rhythm without any significant murmurs, rubs, or gallops appreciated. ABDOMEN: Soft, nontender, nondistended. EXTREMITIES: Palpable pulses bilaterally without any evidence of edema. NEUROLOGIC: Nonfocal. SKIN: No obvious rashes or ecchymosis identified. PSYCHIATRIC: Mood and affect appropriate. LABORATORY: Troponin negative x2. BMP within normal limits. TSH 2.86. DIAGNOSTIC STUDIES: Echocardiogram revealed preserved LV function with ejection fraction of 70% to 7 5%. There are no wall motion or significant valvular abnormalities. EKG yesterday revealed AV alyson reentrant tachycardia versus atrial flutter at a rate of 153 beats per minute. He also has evidence of a right bundle branch block and left posterior fascicular block. His EKG this morning reveals no rmal sinus rhythm at a rate of 86 with a right bundle branch block and left posterior fascicular bloc k. There are also inferior Q-waves present. ASSESSMENT: The patient is a 67-year-old male who developed one episode of asymptomatic supraventric ular tachycardia post surgery. PLAN: Santiago developed 1 episode of SVT post surgery. This was most likely an AV alyson reentrant ta chycardia which did abort with adenosine. He was asymptomatic at the time of his event and denies an y prior incidents of palpitations, presyncope, or syncope. Echocardiogram results revealed preserved LV function without any significant valvular or wall motion abnormalities. At this point, I think jaycob meng can be discharged home with close followup at our office. Consider event monitor to assess how anu quent he is having SVT and to what rates. His electrolytes and TSH were assessed during this hospita lization and within normal limits. His EKG is abnormal with a bifascicular block. He has a right bundle branch block as well as a left posterior fascicular block. He also has a history of hyperlipidemia and family history of coronary d isease. Consider outpatient nuclear stress test for further risk stratification. Also, he would stephen efit from aspirin 162 mg daily. The patient is scheduled to follow up with Dr. Arden Cain. He was al so discussed with Dr. Arden Cain, who agrees with the above. /[id number]/MODL
[2018-02-24] MEDS ORDERED: ATORVASTATIN CALCIUM 10 MG TAB PO SCH (21:00)
[2018-02-24] MEDS ORDERED: NON-FORMULARY NEW DRUG (Simvastatin [Zocor] 20 MG) PO SCH (21:00)
[2018-02-25] MEDS ORDERED: MULTIVITAMINS 1 EACH TAB PO SCH (09:00)
== END 2018-02-24 13:08 | disposition home or self-care (01) ==
LOC: FSGY 12:58 → F2W 20:33
PROVIDERS: ADMIT Internal Medicine; ATTEND Orthopaedic Surgery
PROC: 0LM20ZZ Reattachment of Left Shoulder Tendon, Open Approach (ICD-10-PCS; principal; 2018-02-23 14:45)
PROC: 0PSG04Z Reposition Left Humeral Shaft with Internal Fixation Device, Open Approach (ICD-10-PCS; principal; 2018-02-23 14:45)
DX: I47.1 Supraventricular tachycardia (principal); S42.242A 4-part fracture of surgical neck of left humerus, initial encounter for closed fracture; E03.9 Hypothyroidism, unspecified; N40.0 Benign prostatic hyperplasia without lower urinary tract symptoms; E78.5 Hyperlipidemia, unspecified; F32.9 Major depressive disorder, single episode, unspecified; E11.9 Type 2 diabetes mellitus without complications; V80.010A Animal-rider injured by fall from or being thrown from horse in noncollision accident, initial encounter; Y92.79 Other farm location as the place of occurrence of the external cause
CPT/HCPCS: 23430; 23615; 76001; 93005; 93306; 97110; 97161; 97166; C1769; G0378; C1713; J0153; J0171; J0690; J0735; J1100; J2001; J2250; J2370; J2405; J2704; J3010

== ENCOUNTER → 2018-08-24 | Outpatient (CLI) | payer OTHER ==
[~2018-08-24] MED LIST: IOPAMIDOL (ISOVUE 370) 100 ML BTL IV ONE; LIDOCAINE 1% 300 MG/30 ML SDV ONE
== END ==
LOC: FIMAGING 10:22
PROVIDERS: ATTEND Orthopaedic Surgery
PROC: 3E0U3HZ Introduction of Radioactive Substance into Joints, Percutaneous Approach (ICD-10-PCS; principal; 2018-08-24)
DX: M75.112 Incomplete rotator cuff tear or rupture of left shoulder, not specified as traumatic (principal); S42.202K Unspecified fracture of upper end of left humerus, subsequent encounter for fracture with nonunion
CPT/HCPCS: Q9967